=== PATIENT | male | born 1980 | race Hispanic/Latino ===

== ENCOUNTER 2018-04-03 21:59 | Emergency (ER) | payer SELFPAY ==
[2018-04-03 23:57] LABS: BASO % 0.2 % (0.0-2.0); EOS # 0.2 K/uL (0.0-0.7); EOS % 1.7 % (0.0-4.0); HEMOGLOBIN 14.6 g/dL (12.0-18.0); LYMPH # 1.3 K/uL (1.0-4.3); LYMPH % 13.6 % (20.0-40.0); MEAN CELL VOLUME 87.4 fL (80.0-94.0); MEAN CORPUSCULAR HEMOGLOBIN 29.3 pg (27.0-31.0); MEAN CORPUSCULAR HGB CONC 33.5 g/dL (33.0-37.0); MEAN PLATELET VOLUME 8.5 fL (7.2-11.7); MONO # 0.8 K/uL (0.0-0.8); MONO % 8.8 % (0.0-10.0); NEUT % 75.7 % (50.0-75.0); RBC 4.99 Mil/uL (4.40-5.90); RED CELL DISTRIBUTION WIDTH 12.7 % (11.5-14.5); WHITE BLOOD COUNT 9.2 K/uL (4.8-10.8)
--- NOTE | 2018-04-04 | C.PDOC ---
History Of Present Illness 38 year old male presents to the ED c/o pain, swelling to his right arm s/p doing IV heroin. Patient reports he injected heroin last and since Sunday he noticed his right arm has been getting swollen, red and warm to touch. Patient denies SI/HI, hallucinations, fever, chills, CP, SOB, abdominal pain, injury, fall, trauma. Time Seen by Provider: 04/03/18 22:26 Chief Complaint (Nursing): Substance Abuse History Per: Patient History/Exam Limitations: no limitations Onset/Duration Of Symptoms: Days Current Symptoms Are (Timing): Still Present Suicide/Self Injury Attempted (Context): None Modifying Factor(s): Other (Heroin) Associated Symptoms: denies: Depression, Suicidal Thoughts, Suicidal Plan Recent travel outside of the [place]: No Additional History Per: Patient Past Medical History Reviewed: Historical Data, Nursing Documentation, Vital Signs Vital Signs: Last Vital Signs Temp 98 F 04/03/18 22:03 Pulse 89 04/03/18 22:03 Resp 20 04/03/18 22:03 BP 161/78 H 04/03/18 22:03 Pulse Ox 99 04/03/18 22:03 - Medical History PMH: No Chronic Diseases Surgical History: No Surg Hx Family History: States: Unknown Family Hx - Social History Hx Alcohol Use: Yes Hx Substance Use: Yes (IV heroin) - Immunization History Hx Tetanus Toxoid Vaccination: No Hx Influenza Vaccination: No Hx Pneumococcal Vaccination: No Review Of Systems Constitutional: Negative for: Fever, Chills Cardiovascular: Negative for: Chest Pain, Palpitations Respiratory: Negative for: Shortness of Breath Gastrointestinal: Negative for: Nausea, Vomiting, Abdominal Pain Musculoskeletal: Positive for: Arm Pain Neurological: Negative for: Weakness, Numbness, Headache Physical Exam - Physical Exam Appears: Non-toxic, No Acute Distress Skin: Warm, Dry, Other (diffuse erythema of right mid arm without evidence of abscess) Head: Atraumatic, Normacephalic Eye(s): bilateral: Normal Inspection Oral Mucosa: Moist Neck: Normal ROM, Supple Chest: Symmetrical Cardiovascular: Rhythm Regular Respiratory: Normal Breath Sounds, No Rales, No Rhonchi, No Wheezing Gastrointestinal/Abdominal: Soft, No Tenderness, No Guarding, No Rebound Extremity: Normal ROM, Tenderness (right arm, warmt to touvh), Capillary Refill (< 2 seconds), Swelling (right arm, redness) Pulses: Left Radial: Normal, Right Radial: Normal Neurological/Psych: Oriented x3, Normal Speech, Normal Cognition Gait: Steady ED Course And Treatment - Laboratory Results Result Diagrams: 04/03/18 23:37 04/03/18 23:37 Lab Interpretation: No Acute Changes O2 Sat by Pulse Oximetry: 99 (ON RA) Pulse Ox Interpretation: Normal Progress Note: Patient treated with IV Zosyn and Vancomycin in ED. Medical Decision Making Medical Decision Making: Plan: * Labs * Blood culture Disposition Counseled Patient/Family Regarding: Studies Performed, Diagnosis, Need For Followup, Rx Given - Disposition Referrals: [facility] [Outside] Disposition: HOME/ ROUTINE Disposition Time: 00:26 Condition: STABLE Prescriptions: Cephalexin [cephalexin] 500 mg PO TID #30 cap Sulfamethoxazole/Trimethoprim [Bactrim DS 800 mg-160 mg] 1 tab PO BID #20 tab Instructions: Cellulitis (Skin Infection), Adult (DC) Forms: [employer]ui (Kazakh) - Clinical Impression Clinical Impression: Cellulitis of arm, right, Drug abuse - Scribe Statement The provider has reviewed the documentation as recorded by the Scribe Roger Gayle All medical record entries made by the Scribe were at my direction and personally dictated by me. I have reviewed the chart and agree that the record accurately reflects my personal performance of the history, physical exam, medical decision making, and the department course for this patient. I have also personally directed, reviewed, and agree with the discharge instructions and disposition.
[2018-04-04 00:04] LABS: ALB/GLOB RATIO 1.6 (1.0-2.1); ALBUMIN 4.6 g/dL (3.5-5.0); ALT/SGPT 30 U/L (21-72); AST/SGOT 41 U/L (17-59); BLOOD UREA NITROGEN 18 mg/dL (9-20); GFR NON-AFRICAN AMERICAN > 60
[2018-04-04] MEDS ORDERED: Piperacillin/Tazobact 3.375 gm 100 ML IV STA (00:22)
[2018-04-04] MEDS ORDERED: Vancomycin 1 GM 1 GM/250 ML BAG IV SCH (00:30)
[2018-04-04] MEDS ORDERED: Piperacillin/Tazobact 3.375 gm 100 ML IVPB ONE (00:44)
[2018-04-04] MEDS ORDERED: Vancomycin 1 GM 1 GM/250 ML BAG IVPB ONE (01:31)
[2018-04-04 05:27] VITALS: BP 109/63; PULSE 81; RESP 20; TEMP 98.8; O2SAT 99
== END 2018-04-04 06:20 | disposition home or self-care (01) ==
LOC: C.ER 21:59
DX: L03.113 Cellulitis of right upper limb (principal); F19.10 Other psychoactive substance abuse, uncomplicated
CPT/HCPCS: 80053; 85025; 87040; 96365; 96366; 96367; 99285; G0480; J2543; J3370